=== PATIENT | female | born 1970 | race Caucasian/White ===

== ENCOUNTER → 2016-07-07 | Outpatient (REF) ==
[~2016-07-07] MED LIST: ADDERALL10 MG PO; CEPHALEXIN500 M1; CHANTIX 1MG1 MG PO; CLEOCIN HCL300 MG PO; CLIMARA. PO; DESYREL; EFFEXOR 3737.5 MG/TA PO; FENTANYL 25 MCG TOP; HYDROCODONE/APAP; LAMICTAL; LAMICTAL 100MG100 MG PO; LATUDA40 MG PO; LEXAPRO20 MG PO; LORTAB 5/500 501 TAB PO; NABUMETONE; NORCO 325 MG-7.1 TAB PO; PREMARIN 0.60.625 M1 PO; PROVENTIL0.09 MG/A1 IH; SOMA; ULTRAM 50MG TAB50 MG PO; VYVANSE30 MG PO; WELLBUTRIN PO; XANAX 0.5MG0.5 MG PO; XANAX1 MG PO; ZITHROMAX Z PA250 MG PO; ZOFRAN 4MG T4 MG/TAB PO; ZYPREXA7.5 MG PO
== END ==
LOC: ZLAB.WCH 08:43
DX: Z01.89 Encounter for other specified special examinations (principal)

== ENCOUNTER → 2016-11-12 | Outpatient (REF) | LOC: ZLAB.WCH 14:38 | DX: Z01.89 Encounter for other specified special examinations (principal) ==

== ENCOUNTER 2017-10-14 08:04 | Emergency (ER) | payer MEDICARE, MEDICAID ==
[~2017-10-14] VITALS: Ht 170.2 cm; Wt 122.7 kg
[2017-10-14 08:09] VITALS: BP 173/95; TEMP 98.4
[2017-10-14] MEDS ORDERED: ZOVIRAX 200MG200 MG PO (08:28)
[2017-10-14] MEDS ORDERED: PRILOSEC 20MG20 MG PO (08:28)
[2017-10-14] MEDS ORDERED: CELEBREX50 MG PO (08:29)
[2017-10-14] MEDS ORDERED: SEROQUEL300 MG PO (08:29)
[2017-10-14] MEDS ORDERED: PREMPRO 0.45 MG1 TAB PO (08:36)
[2017-10-14] MEDS ORDERED: SEROQUEL XR400 M1 PO (08:37)
[2017-10-14 08:59] VITALS: PULSE 64
== END 2017-10-14 09:00 | disposition home or self-care (01) ==
LOC: COL.ER 08:04
DX: S93.401A Sprain of unspecified ligament of right ankle, initial encounter (principal); S80.01XA Contusion of right knee, initial encounter; Z98.890 Other specified postprocedural states; X50.0XXA Overexertion from strenuous movement or load, initial encounter; Y92.410 Unspecified street and highway as the place of occurrence of the external cause

== ENCOUNTER 2017-12-24 20:12 | Emergency (ER) | payer MEDICARE, MEDICAID ==
[~2017-12-24] VITALS: Ht 170.2 cm; Wt 127.7 kg
[~2017-12-24 20:12] MED LIST changes: +CELEBREX50 MG PO; +PREMPRO 0.45 MG1 TAB PO; +PRILOSEC 20MG20 MG PO; +SEROQUEL XR400 M1 PO; +SEROQUEL300 MG PO; +ZOVIRAX 200MG200 MG PO
[2017-12-24 20:21] VITALS: TEMP 98.7
[2017-12-24 21:05] LABS: BASO % 0.3 % (0.0-2.0); EOS # 0.3 (0.0-0.7); EOS % 2.6 % (0-4.0); GRAN % 64.3 % (42.2-75.2); HEMATOCRIT 38.3 % (37.0-47.0); HEMOGLOBIN 12.6 g/dl (12.5-16.0); LYMPH # 3.4 (1.2-3.4); LYMPH % 27.5 % (20.0-51.0); MEAN CELL VOLUME 78 fl (80.0-100.0); MEAN CORPUSCULAR HEMOGLOBIN 26 pg (27.0-31.0); MEAN CORPUSCULAR HGB CONC 33 g/dl (33.0-37.0); MEAN PLATELET VOLUME 8.9 fl (7.4-10.4); MONO # 0.6 (0.1-0.6); MONO % 4.8 % (1.7-9.3); PLATELET COUNT 356 K/mm3 (130-400); RED BLOOD COUNT 4.94 M/mm3 (4.10-5.30); REDCELL DISTRIBUTION WIDTH-CV 15.8 % (11.5-14.5)
[2017-12-24 21:15] VITALS: BP 157/95
[2017-12-24 21:18] LABS: ALBUMIN 4.2 gm/dL (3.5-5.0); BILIRUBIN,TOTAL 0.2 mg/dL (0.0-1.0); C-REACTIVE PROTEIN 3.5 mg/dL (0.0-0.9); CALCIUM 9.3 mg/dL (8.4-10.2); CREATININE, serum 0.82 mg/dL (0.52-1.25); POTASSIUM 3.7 mmol/L (3.4-5.0); TOTAL PROTEIN 7.3 gm/dL (6.4-8.2)
[2017-12-24] MEDS ORDERED: ULTRAM 50MG TAB50 MG PO (22:22)
[2017-12-24 22:31] VITALS: PULSE 80
== END 2017-12-24 22:33 | disposition home or self-care (01) ==
LOC: COL.ER 20:12
PROVIDERS: Nurse Practitioner
DX: G89.18 Other acute postprocedural pain (principal); M25.531 Pain in right wrist; F31.9 Bipolar disorder, unspecified; J45.909 Unspecified asthma, uncomplicated; F41.9 Anxiety disorder, unspecified; F90.9 Attention-deficit hyperactivity disorder, unspecified type; Z90.710 Acquired absence of both cervix and uterus; Z87.891 Personal history of nicotine dependence
CPT/HCPCS: J1170

== ENCOUNTER 2018-01-31 15:54 | Emergency (ER) | payer MEDICARE, MEDICAID ==
[~2018-01-31] VITALS: Ht 170.2 cm; Wt 122.7 kg
[~2018-01-31 15:54] MED LIST changes: -CIPRO 500MG TA500 MG PO; -LATUDA20 MG PO; -PROTONIX20 MG PO; -RELAFEN 50500 MG/TAB PO
[2018-01-31] MEDS ORDERED: LATUDA20 MG PO (16:19)
[2018-01-31] MEDS ORDERED: PROTONIX20 MG PO (16:20)
[2018-01-31] MEDS ORDERED: RELAFEN 50500 MG/TAB PO (16:21)
[2018-01-31 17:01] LABS: ALANINE AMINOTRANSFERASE 21 U/L (9-52); ALKALINE PHOSPHATASE 100 U/L (50-136); ANION GAP 8 mmol/L (7-16); AST,SGOT 27 U/L (15-37); BILIRUBIN,TOTAL 0.2 mg/dL (0.0-1.0); BLOOD UREA NITROGEN 12 mg/dL (7-17); CARBON DIOXIDE 27 mmol/L (22-30); CHLORIDE 107 mmol/L (98-107); GLUCOSE 125 mg/dL (74-106); LIPASE 122 U/L (23-300); POTASSIUM 3.8 mmol/L (3.4-5.0); SODIUM 142 mmol/L (137-145); TOTAL PROTEIN 7.3 gm/dL (6.4-8.2)
[2018-01-31 17:05] LABS: BASO # 0.1 (0.0-0.2); BASO % 0.4 % (0.0-2.0); EOS # 0.3 (0.0-0.7); EOS % 2.2 % (0-4.0); GRAN # 7.4 (1.4-6.5); GRAN % 66.3 % (42.2-75.2); HEMATOCRIT 40.6 % (37.0-47.0); HEMOGLOBIN 13.2 g/dl (12.5-16.0); LYMPH # 2.8 (1.2-3.4); LYMPH % 25.3 % (20.0-51.0); MEAN CELL VOLUME 79 fl (80.0-100.0); MEAN CORPUSCULAR HEMOGLOBIN 26 pg (27.0-31.0); MEAN CORPUSCULAR HGB CONC 33 g/dl (33.0-37.0); MEAN PLATELET VOLUME 9.2 fl (7.4-10.4); MONO # 0.6 (0.1-0.6); MONO % 5.4 % (1.7-9.3); PLATELET COUNT 416 K/mm3 (130-400); RED BLOOD COUNT 5.16 M/mm3 (4.10-5.30); REDCELL DISTRIBUTION WIDTH-CV 15.7 % (11.5-14.5)
[2018-01-31 17:14] LABS: TROPONIN-I < 0.012 ng/mL (0.000-0.034)
[2018-01-31 17:54] LABS: COLLECTION METHOD CLEAN CATCH
[2018-01-31 18:01] LABS: MUCOUS Present /lpf; PH 5 (5-8); SQUAMOUS EPITHELIAL 0-2 /hpf; URINE APPEARANCE Clear; URINE BACTERIA None Seen /hpf; URINE BILIRUBIN Negative (NEGATIVE); URINE BLOOD Negative (NEGATIVE); URINE COLOR Yellow; URINE GLUCOSE Negative (NEGATIVE); URINE KETONE Negative (NEGATIVE); URINE LEUKOCYTE ESTERASE Negative (NEGATIVE); URINE NITRATE Negative (NEGATIVE); URINE PROTEIN(semi-quant) 1+ (NEGATIVE); URINE UROBILINOGEN Negative (NEGATIVE)
[2018-01-31] MEDS ORDERED: CIPRO 500MG TA500 MG PO (18:19)
[2018-01-31 18:39] VITALS: BP 150/99; PULSE 66; TEMP 98.1
== END 2018-01-31 18:44 | disposition home or self-care (01) ==
LOC: COL.ER 15:54
PROVIDERS: Emergency Medicine
DX: K52.9 Noninfective gastroenteritis and colitis, unspecified (principal); Z87.891 Personal history of nicotine dependence
CPT/HCPCS: J1630; J1885; J2270; J2550; J7030; Q9967

== ENCOUNTER → 2018-01-31 | Outpatient (CLI) | payer MEDICARE, MEDICAID ==
[~2018-01-31] MED LIST changes: +CIPRO 500MG TA500 MG PO; +LATUDA20 MG PO; +PROTONIX20 MG PO; +RELAFEN 50500 MG/TAB PO
== END ==
LOC: COL.RAD 11:15
DX: K58.1 Irritable bowel syndrome with constipation (principal); K64.8 Other hemorrhoids
CPT/HCPCS: A9537

== ENCOUNTER 2018-02-24 13:51 | Emergency (ER) | payer MEDICARE, MEDICAID ==
[~2018-02-24] VITALS: Ht 170.2 cm; Wt 117.3 kg
[~2018-02-24 13:51] MED LIST changes: +CIPRO 500MG TA500 MG PO; +LATUDA20 MG PO; +PROTONIX20 MG PO; +RELAFEN 50500 MG/TAB PO
[2018-02-24 14:05] VITALS: TEMP 98.3
[2018-02-24] MEDS ORDERED: ZOFRAN 4MG T4 MG/TAB PO (14:40)
[2018-02-24 15:09] LABS: BASO # 0.1 (0.0-0.2); BASO % 0.4 % (0.0-2.0); EOS # 0.1 (0.0-0.7); EOS % 1.1 % (0-4.0); GRAN # 7.8 (1.4-6.5); GRAN % 68.8 % (42.2-75.2); HEMOGLOBIN 13.1 g/dl (12.5-16.0); LYMPH # 2.8 (1.2-3.4); LYMPH % 24.9 % (20.0-51.0); MEAN CELL VOLUME 78 fl (80.0-100.0); MEAN CORPUSCULAR HEMOGLOBIN 26 pg (27.0-31.0); MEAN CORPUSCULAR HGB CONC 33 g/dl (33.0-37.0); MEAN PLATELET VOLUME 9.4 fl (7.4-10.4); MONO # 0.5 (0.1-0.6); MONO % 4.5 % (1.7-9.3); PLATELET COUNT 427 K/mm3 (130-400); RED BLOOD COUNT 5.13 M/mm3 (4.10-5.30); REDCELL DISTRIBUTION WIDTH-CV 15.3 % (11.5-14.5)
[2018-02-24 15:24] LABS: ALBUMIN 4.4 gm/dL (3.5-5.0); BILIRUBIN,TOTAL 0.3 mg/dL (0.0-1.0); C-REACTIVE PROTEIN 1.8 mg/dL (0.0-0.9); CALCIUM 9.7 mg/dL (8.4-10.2); CREATININE, serum 0.77 mg/dL (0.52-1.25); POTASSIUM 4.1 mmol/L (3.4-5.0); TOTAL PROTEIN 7.8 gm/dL (6.4-8.2)
[2018-02-24] MEDS ORDERED: NORCO 325 MG-51 TAB PO (16:29)
[2018-02-24 17:10] VITALS: BP 176/97; PULSE 65
== END 2018-02-24 17:13 | disposition home or self-care (01) ==
LOC: COL.ER 13:51
PROVIDERS: Nurse Practitioner
DX: R10.12 Left upper quadrant pain (principal); F31.9 Bipolar disorder, unspecified; F41.9 Anxiety disorder, unspecified; Z87.891 Personal history of nicotine dependence; Z90.710 Acquired absence of both cervix and uterus
CPT/HCPCS: J1170; J2270; J2550; J7030

== ENCOUNTER 2018-02-26 19:05 | Emergency (ER) | payer MEDICARE, MEDICAID ==
[~2018-02-26] VITALS: Ht 170.2 cm; Wt 117.3 kg
[~2018-02-26 19:05] MED LIST changes: +NORCO 325 MG-51 TAB PO
[2018-02-26 19:06] VITALS: TEMP 98.4
[2018-02-26 20:06] LABS: COLLECTION METHOD CLEAN CATCH
[2018-02-26 20:25] LABS: MUCOUS Present /lpf; PH 6 (5-8); SQUAMOUS EPITHELIAL 0-2 /hpf; URINE APPEARANCE Clear; URINE BACTERIA Rare /hpf; URINE BILIRUBIN Negative (NEGATIVE); URINE BLOOD 1+ (NEGATIVE); URINE COLOR Straw; URINE GLUCOSE Negative (NEGATIVE); URINE KETONE Negative (NEGATIVE); URINE LEUKOCYTE ESTERASE Negative (NEGATIVE); URINE NITRATE Negative (NEGATIVE); URINE PROTEIN(semi-quant) Negative (NEGATIVE); URINE RBC 0-2 /hpf; URINE UROBILINOGEN Negative (NEGATIVE)
[2018-02-26 20:28] LABS: BASO # 0.1 (0.0-0.2); BASO % 0.6 % (0.0-2.0); EOS # 0.3 (0.0-0.7); EOS % 2.6 % (0-4.0); GRAN # 6.9 (1.4-6.5); GRAN % 63.5 % (42.2-75.2); HEMATOCRIT 39.1 % (37.0-47.0); HEMOGLOBIN 12.6 g/dl (12.5-16.0); LYMPH # 3.1 (1.2-3.4); LYMPH % 28.1 % (20.0-51.0); MEAN CELL VOLUME 79 fl (80.0-100.0); MEAN CORPUSCULAR HEMOGLOBIN 26 pg (27.0-31.0); MEAN CORPUSCULAR HGB CONC 32 g/dl (33.0-37.0); MEAN PLATELET VOLUME 9.4 fl (7.4-10.4); MONO # 0.5 (0.1-0.6); MONO % 4.9 % (1.7-9.3); PLATELET COUNT 388 K/mm3 (130-400); RED BLOOD COUNT 4.93 M/mm3 (4.10-5.30); REDCELL DISTRIBUTION WIDTH-CV 15.1 % (11.5-14.5)
[2018-02-26 20:40] LABS: ALANINE AMINOTRANSFERASE 19 U/L (9-52); ALBUMIN 4.1 gm/dL (3.5-5.0); ALKALINE PHOSPHATASE 89 U/L (50-136); ANION GAP 4 mmol/L (7-16); AST,SGOT 23 U/L (15-37); BILIRUBIN,TOTAL 0.1 mg/dL (0.0-1.0); BLOOD UREA NITROGEN 14 mg/dL (7-17); C-REACTIVE PROTEIN 2.4 mg/dL (0.0-0.9); CALCIUM 9.1 mg/dL (8.4-10.2); CARBON DIOXIDE 34 mmol/L (22-30); CHLORIDE 102 mmol/L (98-107); CREATININE, serum 0.98 mg/dL (0.52-1.25); GLUCOSE 107 mg/dL (74-106); LIPASE 76 U/L (23-300); POTASSIUM 4.4 mmol/L (3.4-5.0); SODIUM 140 mmol/L (137-145); TOTAL PROTEIN 7.4 gm/dL (6.4-8.2)
[2018-02-26 21:02] LABS: TROPONIN-I < 0.012 ng/mL (0.000-0.034)
[2018-02-26 22:39] VITALS: BP 156/88; PULSE 66
== END 2018-02-26 22:46 | disposition home or self-care (01) ==
LOC: COL.ER 19:05
PROVIDERS: Emergency Medicine
DX: R10.12 Left upper quadrant pain (principal)
CPT/HCPCS: J1170; J2405; J7030; Q9967

== ENCOUNTER → 2018-03-01 | Outpatient (CLI) | payer MEDICARE, MEDICAID | LOC: COL.RAD 08:13 | DX: K58.1 Irritable bowel syndrome with constipation (principal); K64.8 Other hemorrhoids | CPT/HCPCS: A9541 ==

== ENCOUNTER 2018-05-01 13:15 | Emergency (ER) | payer MEDICARE, MEDICAID ==
[~2018-05-01] VITALS: Ht 170.2 cm; Wt 119.5 kg
[2018-05-01 13:23] VITALS: TEMP 98.4
[2018-05-01 14:02] LABS: BASO # 0.1 (0.0-0.2); BASO % 0.5 % (0.0-2.0); EOS # 0.3 (0.0-0.7); EOS % 2.7 % (0-4.0); GRAN # 7.6 (1.4-6.5); GRAN % 62.6 % (42.2-75.2); HEMATOCRIT 41.4 % (37.0-47.0); HEMOGLOBIN 13.6 g/dl (12.5-16.0); LYMPH # 3.6 (1.2-3.4); LYMPH % 29.6 % (20.0-51.0); MEAN CELL VOLUME 77 fl (80.0-100.0); MEAN CORPUSCULAR HEMOGLOBIN 25 pg (27.0-31.0); MEAN CORPUSCULAR HGB CONC 33 g/dl (33.0-37.0); MEAN PLATELET VOLUME 9.4 fl (7.4-10.4); MONO # 0.5 (0.1-0.6); MONO % 4.2 % (1.7-9.3); PLATELET COUNT 413 K/mm3 (130-400); PROTHROMBIN TIME 11.7 SECONDS (9.7-12.8); RED BLOOD COUNT 5.38 M/mm3 (4.10-5.30); REDCELL DISTRIBUTION WIDTH-CV 15.4 % (11.5-14.5)
[2018-05-01 14:09] LABS: ALANINE AMINOTRANSFERASE 6 U/L (9-52); ALBUMIN 4.3 gm/dL (3.5-5.0); ALKALINE PHOSPHATASE 116 U/L (50-136); ANION GAP 10 mmol/L (7-16); AST,SGOT 18 U/L (15-37); BILIRUBIN,TOTAL 0.2 mg/dL (0.0-1.0); BLOOD UREA NITROGEN 13 mg/dL (7-17); CALCIUM 10.1 mg/dL (8.4-10.2); CARBON DIOXIDE 29 mmol/L (22-30); CHLORIDE 100 mmol/L (98-107); CREATININE, serum 0.82 mg/dL (0.52-1.25); GLUCOSE 112 mg/dL (74-106); LIPASE 73 U/L (23-300); POTASSIUM 4.4 mmol/L (3.4-5.0); SODIUM 138 mmol/L (137-145); TOTAL PROTEIN 8.1 gm/dL (6.4-8.2)
[2018-05-01 14:22] LABS: TROPONIN-I < 0.012 ng/mL (0.000-0.035)
[2018-05-01] MEDS ORDERED: ATIVAN 1MG T1 MG/TAB PO (17:52)
[2018-05-01 18:22] VITALS: BP 153/84; PULSE 65
== END 2018-05-01 18:24 | disposition home or self-care (01) ==
LOC: COL.ER 13:15
PROVIDERS: Emergency Medicine
DX: F32.9 Major depressive disorder, single episode, unspecified (principal); R07.89 Other chest pain; F17.210 Nicotine dependence, cigarettes, uncomplicated; Z90.49 Acquired absence of other specified parts of digestive tract; Z90.710 Acquired absence of both cervix and uterus
CPT/HCPCS: J2060; J2270; J3010; J7030

== ENCOUNTER 2018-06-23 18:32 | Emergency (ER) | payer MEDICARE, MEDICAID ==
[~2018-06-23] VITALS: Ht 170.2 cm; Wt 119.5 kg
[~2018-06-23 18:32] MED LIST changes: +ATIVAN 1MG T1 MG/TAB PO
[2018-06-23 18:37] VITALS: TEMP 98.8
[2018-06-23] MEDS ORDERED: NAPROXEN 3375 MG/TAB (18:55)
[2018-06-23] MEDS ORDERED: NORCO 325 MG-51 TAB PO (20:20)
[2018-06-23 20:35] VITALS: BP 142/92; PULSE 61
== END 2018-06-23 20:42 | disposition home or self-care (01) ==
LOC: COL.ER 18:32
DX: S59.902A Unspecified injury of left elbow, initial encounter (principal); M70.32 Other bursitis of elbow, left elbow; R20.2 Paresthesia of skin; F31.9 Bipolar disorder, unspecified; F41.9 Anxiety disorder, unspecified; Z87.891 Personal history of nicotine dependence; W22.8XXA Striking against or struck by other objects, initial encounter

== ENCOUNTER 2018-08-01 10:09 | Emergency (ER) | payer MEDICARE, MEDICAID ==
[~2018-08-01] VITALS: Ht 170.2 cm; Wt 119.5 kg
[~2018-08-01 10:09] MED LIST changes: +NAPROXEN 3375 MG/TAB
[2018-08-01 10:25] VITALS: BP 130/70; PULSE 69; TEMP 97
[2018-08-01] MEDS ORDERED: LATUDA60 MG PO (14:26)
[2018-08-01] MEDS ORDERED: HCTZ 25MG TAB25 MG PO (14:27)
[2018-08-01] MEDS ORDERED: REVIA 50MG TABL50 MG PO (14:27)
[2018-08-01] MEDS ORDERED: CRUTCHES MC (14:34)
== END 2018-08-01 14:35 | disposition home or self-care (01) ==
LOC: COL.ER 10:09
DX: S93.402A Sprain of unspecified ligament of left ankle, initial encounter (principal); I10 Essential (primary) hypertension; Z87.891 Personal history of nicotine dependence; X50.1XXA Overexertion from prolonged static or awkward postures, initial encounter

== ENCOUNTER 2019-03-30 13:13 | Emergency (ER) | payer MEDICARE, MEDICAID ==
[~2019-03-30] VITALS: Ht 170.2 cm; Wt 121.4 kg
[~2019-03-30 13:13] MED LIST changes: +CRUTCHES MC; +HCTZ 25MG TAB25 MG PO; +LATUDA60 MG PO; +REVIA 50MG TABL50 MG PO
[2019-03-30 13:16] VITALS: TEMP 97.1
[2019-03-30] MEDS ORDERED: NORCO 325 MG-51 TAB PO (14:45)
[2019-03-30] MEDS ORDERED: VALIUM 2MG T2 MG/TAB PO (15:37)
[2019-03-30 16:30] VITALS: BP 150/90; PULSE 58
== END 2019-03-30 16:30 | disposition home or self-care (01) ==
LOC: COL.ER 13:13
DX: S46.812A Strain of other muscles, fascia and tendons at shoulder and upper arm level, left arm, initial encounter (principal); R25.2 Cramp and spasm; X58.XXXA Exposure to other specified factors, initial encounter
CPT/HCPCS: J1200; J2270; J2360

== ENCOUNTER 2019-10-08 23:18 | Emergency (ER) | payer MEDICARE, MEDICAID ==
[~2019-10-08] VITALS: Ht 170.2 cm; Wt 118.2 kg
[~2019-10-08 23:18] MED LIST changes: +VALIUM 2MG T2 MG/TAB PO
[2019-10-08 23:23] VITALS: TEMP 97.5
[2019-10-08 23:52] VITALS: BP 119/70; PULSE 83
== END 2019-10-08 23:52 | disposition home or self-care (01) ==
LOC: COL.ER 23:18
DX: S93.402A Sprain of unspecified ligament of left ankle, initial encounter (principal); F31.9 Bipolar disorder, unspecified; I10 Essential (primary) hypertension; W19.XXXA Unspecified fall, initial encounter; X50.1XXA Overexertion from prolonged static or awkward postures, initial encounter; Y92.410 Unspecified street and highway as the place of occurrence of the external cause

== ENCOUNTER → 2020-01-30 | Outpatient (CLI) | payer MEDICARE, MEDICAID | LOC: COL.RAD 12:30 | DX: M47.816 Spondylosis without myelopathy or radiculopathy, lumbar region (principal); M54.6 Pain in thoracic spine ==

== ENCOUNTER 2021-06-01 12:04 | Emergency (ER) | payer MEDICARE, MEDICAID ==
[~2021-06-01] VITALS: Ht 170.2 cm; Wt 114.5 kg
[2021-06-01 12:19] VITALS: TEMP 98.8
[2021-06-01 13:05] LABS: BASO # 0.1 K/mm3 (0.0-0.2); BASO % 0.6 % (0.0-2.0); EOS # 0.2 K/mm3 (0.0-0.7); EOS % 1.3 % (0.0-4.0); GRAN # 7.6 K/mm3 (1.4-6.5); HEMATOCRIT 41.5 % (37.0-47.0); HEMOGLOBIN 14.5 g/dl (12.5-16.0); LYMPH # 2.7 K/mm3 (1.2-3.4); LYMPH % 24.4 % (20.0-51.0); MEAN CELL VOLUME 79 fl (80.0-100.0); MEAN CORPUSCULAR HEMOGLOBIN 28 pg (27-31); MEAN CORPUSCULAR HGB CONC 35 g/dl (33.0-37.0); MEAN PLATELET VOLUME 9.1 fl (7.4-10.4); MONO # 0.6 K/mm3 (0.1-0.6); MONO % 5.3 % (1.7-9.3); PLATELET COUNT 399 K/mm3 (130-400); RED BLOOD COUNT 5.23 M/mm3 (4.10-5.30); REDCELL DISTRIBUTION WIDTH-CV 13.3 % (11.5-14.5)
[2021-06-01 13:20] LABS: ALBUMIN 4.4 gm/dL (3.5-5.0); BILIRUBIN,TOTAL 0.3 mg/dL (0.2-1.2); CALCIUM 9.6 mg/dL (8.4-10.2); CREATININE, serum 1.09 mg/dL (0.57-1.11); POTASSIUM 3.7 mmol/L (3.5-4.5); TOTAL PROTEIN 7.6 gm/dL (6.2-8.1)
[2021-06-01 14:40] LABS: COLLECTION METHOD CLEAN CATCH
[2021-06-01 14:59] LABS: PH 7 (5-8); SQUAMOUS EPITHELIAL 0-2 /hpf (0-10); URINE APPEARANCE Clear (CLEAR/HAZY); URINE BACTERIA None Seen /hpf (NONE SEEN); URINE BILIRUBIN Negative (NEGATIVE); URINE BLOOD 1+ (NEGATIVE); URINE COLOR Straw (YELLOW); URINE GLUCOSE Negative (NEGATIVE); URINE KETONE Negative (NEGATIVE); URINE LEUKOCYTE ESTERASE Negative (NEGATIVE); URINE NITRATE Negative (NEGATIVE); URINE PROTEIN(semi-quant) Negative (NEGATIVE); URINE RBC 0-2 /hpf (0-2); URINE UROBILINOGEN Negative (NEGATIVE)
[2021-06-01 16:34] VITALS: BP 129/76; PULSE 53
== END 2021-06-01 16:38 | disposition home or self-care (01) ==
LOC: COL.ER 12:04
PROVIDERS: Physician Assistant
DX: K76.0 Fatty (change of) liver, not elsewhere classified (principal); D72.829 Elevated white blood cell count, unspecified; Z87.891 Personal history of nicotine dependence
CPT/HCPCS: J1790; J7030; Q9967

== ENCOUNTER → 2021-06-01 | Outpatient (CLI) | payer MEDICARE, MEDICAID | LOC: COL.RAD 06:56 | DX: K76.0 Fatty (change of) liver, not elsewhere classified (principal) ==

== ENCOUNTER 2021-06-17 16:08 | Emergency (ER) | payer MEDICARE, MEDICAID ==
[~2021-06-17] VITALS: Ht 170.2 cm; Wt 110.0 kg
[2021-06-17 16:57] LABS: BASO # 0.1 K/mm3 (0.0-0.2); BASO % 0.6 % (0.0-2.0); EOS # 0.2 K/mm3 (0.0-0.7); EOS % 2.4 % (0.0-4.0); GRAN # 5.4 K/mm3 (1.4-6.5); GRAN % 58.5 % (42.2-75.2); HEMATOCRIT 41.5 % (37.0-47.0); HEMOGLOBIN 14.5 g/dl (12.5-16.0); LYMPH % 32.5 % (20.0-51.0); MEAN CELL VOLUME 81 fl (80.0-100.0); MEAN CORPUSCULAR HEMOGLOBIN 28 pg (27-31); MEAN CORPUSCULAR HGB CONC 35 g/dl (33.0-37.0); MEAN PLATELET VOLUME 9.3 fl (7.4-10.4); MONO # 0.5 K/mm3 (0.1-0.6); MONO % 5.8 % (1.7-9.3); PLATELET COUNT 362 K/mm3 (130-400); RED BLOOD COUNT 5.14 M/mm3 (4.10-5.30); REDCELL DISTRIBUTION WIDTH-CV 13.4 % (11.5-14.5)
[2021-06-17 17:17] LABS: ALBUMIN 4.3 gm/dL (3.5-5.0); BILIRUBIN,TOTAL 0.4 mg/dL (0.2-1.2); CALCIUM 9.7 mg/dL (8.4-10.2); CREATININE, serum 1.24 mg/dL (0.57-1.11); POTASSIUM 3.7 mmol/L (3.5-4.5); TOTAL PROTEIN 7.6 gm/dL (6.2-8.1)
[2021-06-17] MEDS ORDERED: CARAFATE 1GM1 G PO (17:51)
[2021-06-17 18:10] VITALS: BP 127/84; PULSE 49; TEMP 98.4
== END 2021-06-17 18:10 | disposition home or self-care (01) ==
LOC: COL.ER 16:08
PROVIDERS: Emergency Medicine
DX: R10.13 Epigastric pain (principal); R13.10 Dysphagia, unspecified; R94.4 Abnormal results of kidney function studies; Z87.891 Personal history of nicotine dependence
CPT/HCPCS: J2405; J7030

== ENCOUNTER → 2021-07-10 | Outpatient (CLI) | payer MEDICARE, MEDICAID ==
[~2021-07-10] MED LIST changes: +CARAFATE 1GM1 G PO
== END ==
LOC: COL.RAD 07-03 10:00
DX: R10.13 Epigastric pain (principal)
CPT/HCPCS: A9537

== ENCOUNTER → 2021-07-21 | Outpatient (CLI) | payer MEDICARE, MEDICAID | LOC: COL.RAD 07:44 | DX: R10.13 Epigastric pain (principal) | CPT/HCPCS: A9541 ==

== ENCOUNTER 2021-08-30 13:29 | Emergency (ER) | payer MEDICARE, MEDICAID ==
[~2021-08-30] VITALS: Ht 170.2 cm; Wt 98.2 kg
[2021-08-30 13:37] VITALS: TEMP 96.9
[2021-08-30 14:28] LABS: BASO % 0.4 % (0.0-2.0); EOS # 0.1 K/mm3 (0.0-0.7); EOS % 1.2 % (0.0-4.0); GRAN # 6.3 K/mm3 (1.4-6.5); GRAN % 64.5 % (42.2-75.2); HEMATOCRIT 38.1 % (37.0-47.0); HEMOGLOBIN 13.5 g/dl (12.5-16.0); LYMPH # 2.8 K/mm3 (1.2-3.4); LYMPH % 28.7 % (20.0-51.0); MEAN CELL VOLUME 81 fl (80.0-100.0); MEAN CORPUSCULAR HEMOGLOBIN 29 pg (27-31); MEAN CORPUSCULAR HGB CONC 35 g/dl (33.0-37.0); MEAN PLATELET VOLUME 9.2 fl (7.4-10.4); MONO # 0.5 K/mm3 (0.1-0.6); MONO % 4.9 % (1.7-9.3); PLATELET COUNT 387 K/mm3 (130-400); RED BLOOD COUNT 4.73 M/mm3 (4.10-5.30); REDCELL DISTRIBUTION WIDTH-CV 13.3 % (11.5-14.5)
[2021-08-30 14:46] LABS: ALBUMIN 4.1 gm/dL (3.5-5.0); BILIRUBIN,TOTAL 0.2 mg/dL (0.2-1.2); C-REACTIVE PROTEIN 3.38 mg/dL (0.00-0.50); CALCIUM 9.9 mg/dL (8.4-10.2); CREATININE, serum 0.92 mg/dL (0.57-1.11); POTASSIUM 3.5 mmol/L (3.5-4.5); TOTAL PROTEIN 7.5 gm/dL (6.2-8.1)
[2021-08-30 16:47] VITALS: BP 125/74; PULSE 43
== END 2021-08-30 16:52 | disposition home or self-care (01) ==
LOC: COL.ER 13:29
PROVIDERS: Nurse Practitioner Family
DX: K85.90 Acute pancreatitis without necrosis or infection, unspecified (principal); R74.8 Abnormal levels of other serum enzymes
CPT/HCPCS: J1885; J2270; J2405; J7030

== ENCOUNTER 2022-05-05 13:00 | Emergency (ER) | payer MEDICARE, MEDICAID ==
[~2022-05-05] VITALS: Ht 172.7 cm; Wt 79.5 kg
[2022-05-05 13:05] VITALS: PULSE 76; TEMP 98.2
[2022-05-05] MEDS ORDERED: PEPCID 20MG TAB20 MG PO (14:18)
[2022-05-05 14:34] VITALS: BP 116/86
[2022-05-05] MEDS ORDERED: OXY IR5 MG PO (14:38)
== END 2022-05-05 14:37 | disposition home or self-care (01) ==
LOC: COL.ER 13:00
DX: K21.9 Gastro-esophageal reflux disease without esophagitis (principal); F41.9 Anxiety disorder, unspecified; Z79.899 Other long term (current) drug therapy; Z87.891 Personal history of nicotine dependence

== ENCOUNTER 2022-06-12 18:34 | Emergency (ER) | payer MEDICARE, MEDICAID ==
[~2022-06-12] VITALS: Ht 172.7 cm; Wt 77.3 kg
[~2022-06-12 18:34] MED LIST changes: +OXY IR5 MG PO; +PEPCID 20MG TAB20 MG PO
[2022-06-12 18:37] VITALS: TEMP 98.1
[2022-06-12 19:02] LABS: BASO # 0.1 K/mm3 (0.0-0.2); BASO % 0.6 % (0.0-2.0); EOS # 0.1 K/mm3 (0.0-0.7); EOS % 1.3 % (0.0-4.0); GRAN # 4.4 K/mm3 (1.4-6.5); GRAN % 49.6 % (42.2-75.2); HEMATOCRIT 40.7 % (37.0-47.0); HEMOGLOBIN 14.5 g/dl (12.5-16.0); LYMPH # 3.8 K/mm3 (1.2-3.4); LYMPH % 42.9 % (20.0-51.0); MEAN CELL VOLUME 83 fl (80.0-100.0); MEAN CORPUSCULAR HEMOGLOBIN 30 pg (27-31); MEAN CORPUSCULAR HGB CONC 36 g/dl (33.0-37.0); MEAN PLATELET VOLUME 8.4 fl (7.4-10.4); MONO # 0.5 K/mm3 (0.1-0.6); MONO % 5.4 % (1.7-9.3); PLATELET COUNT 355 K/mm3 (130-400); RED BLOOD COUNT 4.88 M/mm3 (4.10-5.30); REDCELL DISTRIBUTION WIDTH-CV 12.8 % (11.5-14.5)
[2022-06-12 19:30] LABS: ALANINE AMINOTRANSFERASE 8 U/L (0-55); ALBUMIN 4.4 gm/dL (3.5-5.0); ALKALINE PHOSPHATASE 48 U/L (40-150); ANION GAP 13 mmol/L (7-16); AST,SGOT 13 U/L (5-34); BILIRUBIN,TOTAL 0.3 mg/dL (0.2-1.2); BLOOD UREA NITROGEN 14 mg/dL (7-19); CALCIUM 10.2 mg/dL (8.4-10.2); CARBON DIOXIDE 27 mmol/L (22-29); CHLORIDE 99 mmol/L (98-107); CREATININE, serum 0.87 mg/dL (0.57-1.11); GLUCOSE 97 mg/dL (70-99); LIPASE 103 U/L (8-78); POTASSIUM 3.3 mmol/L (3.5-4.5); SODIUM 139 mmol/L (136-145); TOTAL PROTEIN 7.7 gm/dL (6.2-8.1)
[2022-06-12 19:37] LABS: TROPONIN-I < 0.010 ng/mL (0.00-0.033)
[2022-06-12 19:50] LABS: COLLECTION METHOD CLEAN CATCH
[2022-06-12 19:56] LABS: SQUAMOUS EPITHELIAL 0-2 /hpf (0-10); URINE BACTERIA None Seen /hpf (NONE SEEN); URINE RBC 0-2 /hpf (0-2)
[2022-06-12 19:58] LABS: URINE APPEARANCE Clear (CLEAR/HAZY); URINE BLOOD Negative (NEGATIVE); URINE COLOR Yellow (YELLOW); URINE GLUCOSE Negative (NEGATIVE); URINE KETONE Negative (NEGATIVE); URINE NITRATE Negative (NEGATIVE); URINE PROTEIN(semi-quant) Negative (NEGATIVE); URINE UROBILINOGEN 0.2 E.U/dL (0.2-1.0)
[2022-06-12 20:39] VITALS: BP 146/93; PULSE 58
== END 2022-06-12 20:39 | disposition home or self-care (01) ==
LOC: COL.ER 18:34
PROVIDERS: Physician Assistant
DX: F41.9 Anxiety disorder, unspecified (principal); Z79.899 Other long term (current) drug therapy
CPT/HCPCS: J2060; J2405